=== PATIENT | male | born 1955 | race Asian ===

== ENCOUNTER 2019-01-04 16:08 | Outpatient (CLI) | payer BC ==
[~2019-01-04 16:08] MED LIST: ALLO300T2 PO; LIP10 PO; LOSA50TA3 PO; NOR10 PO
[2019-01-04 17:12] LABS: BILIRUBIN,URINE NEGATIVE (NEGATIVE); BLOOD, URINE 3+ (NEGATIVE); CLARITY/URINE CLEAR (CLEAR); COLOR,URINE YELLOW (YELLOW); GLUCOSE,URINE NEGATIVE (NEGATIVE); KETONES,URINE NEGATIVE (NEGATIVE); LEUKOCYTE ESTERASE ,URINE NEGATIVE (NEGATIVE); NITRITE, URINE NEGATIVE (NEGATIVE); PROTEIN URINE 2+ (NEGATIVE); UROBILINOGEN,URINE 0.2 (0.2-1.0)
[2019-01-04 17:21] LABS: BACTERIA,URINE FEW /HPF (None Seen); MUCUS,URINE None Seen /LPF (None Seen); WBC,URINE 0-3 /HPF (0-3)
[2019-01-04 17:29] LABS: WHITE BLOOD COUNT (AUTO) 10.4 K/uL (4.8-10.8)
[2019-01-04 17:30] LABS: HEMATOCRIT 47.5 % (36-54); HEMOGLOBIN 16.4 g/dL (14.0-18.0); MEAN CORPUSCULAR HEMOGLOBIN 31 pg (27-31); MEAN CORPUSCULAR HGB CONC 35 % (32-36); MEAN CORPUSCULAR VOLUME 91 fL (79.0-98.0); RED BLOOD CELL COUNT(AUTO) 5.22 MIL/uL (4.2-6.2)
[2019-01-04 17:31] LABS: EOSINOPHILS % (AUTO) 0.8 % (0.0-4.0); LYMPHOCYTES % (AUTO) 23.3 % (20.5-51.5); MONOCYTES % (AUTO) 5.9 % (1.7-9.3); PLATELET COUNT (AUTO) 223 K/uL (130-430); RED CELL DISTRIBUTION WIDTH 13.1 % (9.0-15.0)
[2019-01-04 17:32] LABS: BASOPHILS % (AUTO) 0.4 % (0.0-2.0); EOSINOPHILS # (AUTO) 0.1 K/uL (0.0-0.4); LYMPHOCYTES # (AUTO) 2.4 K/uL (1.0-5.5); MONOCYTES # (AUTO) 0.6 K/uL (0.0-1.0); NEUTROPHILS # (AUTO) 7.3 K/uL (1.8-7.7)
[2019-01-04 17:33] LABS: ALBUMIN 4.7 g/dL (3.4-4.8); CALCIUM 9.6 mg/dL (8.4-11.0); CREATININE 1.27 mg/dL (0.55-1.30); POTASSIUM 3.3 mmol/L (3.5-5.1); THYROID STIMULATING HORMONE 1.5 uIu/mL (0.34-4.82); TOTAL BILIRUBIN 0.7 mg/dL (0.0-1.0); URIC ACID 7.9 mg/dL (2.4-7.0)
[2019-01-04 17:36] LABS: NEUTROPHILS % (AUTO) 69.6 % (40.0-70.0)
[2019-01-05 08:06] LABS: HEMOGLOBIN A1C 5.6 % (4.8-5.6)
[2019-01-05 11:38] LABS: PROSTATE SPECIFIC AG 0.7 ng/mL (0.0-4.0)
[2019-01-07 14:40] LABS: MICROALBUMIN URINE RANDOM 690.9 ug/ml (NOT ESTABLISHED)
== END 2019-01-04 21:03 | disposition home or self-care (01) ==
LOC: SLB 16:08
PROVIDERS: ATTEND Internal Medicine
DX: Z00.00 Encounter for general adult medical examination without abnormal findings (principal)
CPT/HCPCS: 36415; 80053; 80061; 81000-TC; 82043; 82306; 82570; 82607; 83036; 84153; 84443-TC; 84550-TC; 85025

== ENCOUNTER 2019-01-11 12:19 | Outpatient (CLI) | payer BC | END 2019-01-11 21:26 | disposition home or self-care (01) | LOC: SCT 12:19 | PROVIDERS: ATTEND Internal Medicine | DX: N28.1 Cyst of kidney, acquired (principal); N20.0 Calculus of kidney; I71.9 Aortic aneurysm of unspecified site, without rupture; I11.9 Hypertensive heart disease without heart failure; J61 Pneumoconiosis due to asbestos and other mineral fibers; I13.10 Hypertensive heart and chronic kidney disease without heart failure, with stage 1 through stage 4 chronic kidney disease, or unspecified chronic kidney disease; N18.9 Chronic kidney disease, unspecified | CPT/HCPCS: 71250-TC; 76770; 93005; 93306 ==

== ENCOUNTER 2019-07-21 13:37 | Outpatient (CLI) | payer BC, OTHER ==
[2019-07-21 15:38] LABS: BILIRUBIN,URINE NEGATIVE (NEGATIVE); BLOOD, URINE 3+ (NEGATIVE); CLARITY/URINE CLEAR (CLEAR); COLOR,URINE YELLOW (YELLOW); GLUCOSE,URINE NEGATIVE (NEGATIVE); KETONES,URINE NEGATIVE (NEGATIVE); LEUKOCYTE ESTERASE ,URINE NEGATIVE (NEGATIVE); NITRITE, URINE NEGATIVE (NEGATIVE); PROTEIN URINE TRACE (NEGATIVE); UROBILINOGEN,URINE 0.2 (0.2-1.0)
[2019-07-21 15:45] LABS: CALCIUM 8.8 mg/dL (8.4-11.0); CREATININE 1.32 mg/dL (0.55-1.30); TOTAL BILIRUBIN 0.9 mg/dL (0.0-1.0)
[2019-07-21 15:46] LABS: ALBUMIN 4.6 g/dL (3.4-4.8)
[2019-07-21 16:05] LABS: BACTERIA,URINE FEW /HPF (None Seen); MUCUS,URINE None Seen /LPF (None Seen); WBC,URINE NONE SEEN /HPF (0-3)
[2019-07-22 08:11] LABS: IMMUNOGLOBULIN A, SERUM 377 mg/dL (61-437); IMMUNOGLOBULIN G, SERUM 1188 mg/dL (700-1600); IMMUNOGLOBULIN M, SERUM 91 mg/dL (20-172)
== END 2019-07-21 21:05 | disposition home or self-care (01) ==
LOC: SUS 13:37
PROVIDERS: ATTEND Internal Medicine
DX: I12.9 Hypertensive chronic kidney disease with stage 1 through stage 4 chronic kidney disease, or unspecified chronic kidney disease (principal); N18.9 Chronic kidney disease, unspecified; N28.1 Cyst of kidney, acquired
CPT/HCPCS: 36415; 76770; 80053; 81000-TC; 82043; 82570; 82784; 86334

== ENCOUNTER 2019-09-17 09:11 | Outpatient (CLI) | payer BC, OTHER ==
[2019-09-17 11:03] LABS: BASOPHILS % (AUTO) 0.3 % (0.0-2.0); EOSINOPHILS # (AUTO) 0.1 K/uL (0.0-0.4); EOSINOPHILS % (AUTO) 1.1 % (0.0-4.0); HEMATOCRIT 43.8 % (36-54); HEMOGLOBIN 15.2 g/dL (14.0-18.0); LYMPHOCYTES # (AUTO) 2.3 K/uL (1.0-5.5); LYMPHOCYTES % (AUTO) 25.9 % (20.5-51.5); MEAN CORPUSCULAR HEMOGLOBIN 32 pg (27-31); MEAN CORPUSCULAR HGB CONC 35 % (32-36); MEAN CORPUSCULAR VOLUME 93 fL (79.0-98.0); MONOCYTES # (AUTO) 0.6 K/uL (0.0-1.0); MONOCYTES % (AUTO) 6.4 % (1.7-9.3); NEUTROPHILS % (AUTO) 66.3 % (40.0-70.0); PLATELET COUNT (AUTO) 234 K/uL (130-430); RED BLOOD CELL COUNT(AUTO) 4.69 MIL/uL (4.2-6.2)
[2019-09-17 11:06] LABS: ALBUMIN 4.2 g/dL (3.4-4.8); CALCIUM 8.5 mg/dL (8.4-11.0); CREATININE 1.2 mg/dL (0.55-1.30); POTASSIUM 3.5 mmol/L (3.5-5.1); TOTAL BILIRUBIN 0.6 mg/dL (0.0-1.0); URIC ACID 6.4 mg/dL (2.4-7.0)
[2019-09-19 20:55] LABS: CREATININE, URINE 189.3 mg/dL; MICROALBUMIN URINE RANDOM 625.6 ug/ml (NOT ESTABLISHED)
[2019-09-19 20:56] LABS: MICROALBUMIN/CREAT RATIO, UR 330.5 MG/G CRE (0.0-30.0)
== END 2019-09-17 20:43 | disposition home or self-care (01) ==
LOC: SLB 09:11
PROVIDERS: ATTEND Internal Medicine
DX: I12.9 Hypertensive chronic kidney disease with stage 1 through stage 4 chronic kidney disease, or unspecified chronic kidney disease (principal); N18.9 Chronic kidney disease, unspecified; E78.5 Hyperlipidemia, unspecified
CPT/HCPCS: 36415; 80053; 80061; 82043; 82570; 84153; 84550-TC; 85025

== ENCOUNTER 2020-09-18 07:30 | Outpatient (CLI) | payer BC, OTHER | END 2020-09-18 20:46 | disposition home or self-care (01) | LOC: SCT 07:30 | PROVIDERS: ATTEND Internal Medicine | DX: N20.0 Calculus of kidney (principal); R10.9 Unspecified abdominal pain; N28.1 Cyst of kidney, acquired; N28.89 Other specified disorders of kidney and ureter; M47.817 Spondylosis without myelopathy or radiculopathy, lumbosacral region; M50.022 Cervical disc disorder at C5-C6 level with myelopathy; M48.02 Spinal stenosis, cervical region; M47.12 Other spondylosis with myelopathy, cervical region; M51.26 Other intervertebral disc displacement, lumbar region | CPT/HCPCS: 72125; 72131; 74178; 76376; Q9967 ==

== ENCOUNTER 2022-11-20 11:03 | Outpatient (CLI) | payer BC, OTHER | END 2022-11-20 19:30 | disposition home or self-care (01) | LOC: SRD 11:03 → SCA 19:30 | PROVIDERS: ATTEND Internal Medicine | DX: I35.1 Nonrheumatic aortic (valve) insufficiency (principal); I51.7 Cardiomegaly; I51.89 Other ill-defined heart diseases | CPT/HCPCS: 93306 ==

== ENCOUNTER 2023-07-30 11:39 | Outpatient (CLI) | payer BC, OTHER ==
[~2023-07-30 11:39] MED LIST changes: +LOSA-413 PO; -LOSA50TA3 PO
== END 2023-07-30 18:30 | disposition home or self-care (01) ==
LOC: SUS 11:39
PROVIDERS: ATTEND Internal Medicine
DX: N28.1 Cyst of kidney, acquired (principal); E11.21 Type 2 diabetes mellitus with diabetic nephropathy
CPT/HCPCS: 76770